=== PATIENT | male | born 1945 | race Asian ===

== ENCOUNTER 2017-05-28 06:05 | Inpatient (IN) | payer MEDICARE, OTHER ==
[~2017-05-28] VITALS: Ht 162.6 cm; Wt 70.4 kg
[~2017-05-28 06:05] MED LIST: ASPI-496 PO; ATOR20TA9 PO; CARV-39 PO; LISI-167 PO; MAGN420T PO; METF500T4 PO; NITR0.4T SL; OMEP-110 PO; SERT25TA3 PO; TICA90TA PO; VITA1TAB63 PO
[2017-05-28] MEDS ORDERED: SODIUM CHLORIDE 0.9% 1,000 ML IV ONE ×2 (06:17→10:06)
[2017-05-28] MEDS ORDERED: MORPHINE SULFATE 4 MG/ML, 1ML IVPush PRN (06:30)
[2017-05-28] MEDS ORDERED: ONDANSETRON 2MG/ML, 2ML IVPush ONE (06:30)
[2017-05-28] MEDS ORDERED: SODIUM CHLORIDE FLUSH 10ML SYR IVF ONE (06:30)
[2017-05-28 06:51] LABS: HEMATOCRIT 42.1 % (39.2-51.8); HEMOGLOBIN 13.9 g/dL (13.7-18.0); WHITE BLOOD COUNT 14.2 x10^3/uL (3.4-10)
[2017-05-28 07:04] LABS: ASPARTATE AMINO TRANSFERASE 36 U/L (15-37); BLOOD UREA NITROGEN 24 mg/dL (7-18)
[2017-05-28] MEDS ORDERED: OMNIPAQUE 350 MG/ML, 100ML BOTTLE ONE (08:00)
[2017-05-28] MEDS ORDERED: METRONIDAZOLE PMX 500MG/100ML 100 ML ONE (08:44)
[2017-05-28] MEDS ORDERED: CEFOTETAN PMX 1GM/50ML 50 ML IV ONE (09:00)
[2017-05-28] MEDS ORDERED: METRONIDAZOLE PMX 500MG/100ML 100 ML IV ONE (09:00)
[2017-05-28] MEDS ORDERED: CEFAZOLIN PMX 1GM/50ML 50 ML ONE (10:04)
[2017-05-28] MEDS: D5%-0.45% NACL 1,000 ML IV SCH ×2 (10:12→17:00)
[2017-05-28] MEDS ORDERED: PIPERACILLIN/TAZO/PMX 3.375GM 50 ML ONE (10:19)
[2017-05-28] MEDS: PIPERACILLIN/TAZO/PMX 3.375GM 50 ML IV SCH ×3 (10:21→23:16)
[2017-05-28] MEDS ORDERED: ONDANSETRON ODT 4 MG PO PRN (10:30)
[2017-05-28] MEDS ORDERED: ONDANSETRON 2MG/ML, 2ML IVPush PRN ×2 (10:30→19:00)
[2017-05-28] MEDS ORDERED: LABETALOL 5MG/ML, 20ML IVPush PRN (10:30)
[2017-05-28] MEDS ORDERED: GUAIFENESIN/DM 200-20MG, 10ML UDC PO PRN (10:30)
[2017-05-28] MEDS ORDERED: SODIUM CHLORIDE FLUSH 10ML SYR IVF PRN (10:30)
[2017-05-28] MEDS ORDERED: morphine SULFATE 10 MG/ML, 1ML IVPush PRN (10:30)
[2017-05-28] MEDS ORDERED: NITROGLYCERIN 0.4 MG BOTTLE (25 TABS) SL PRN (11:00)
[2017-05-28 11:49] VITALS: BP 125/65
[2017-05-28 12:18] VITALS: BP 125/65
[2017-05-28] MEDS ORDERED: EPINEPHRINE 1 MG/ML, 1ML ONE (18:11)
[2017-05-28] MEDS ORDERED: BUPIVACAINE/PF 0.5% ONE (18:11)
[2017-05-28] MEDS ORDERED: FENTANYL PF 250 MCG/5ML ONE (18:13)
[2017-05-28] MEDS ORDERED: LIDOCAINE GEL 2%, 5ML ONE (18:14)
[2017-05-28] MEDS ORDERED: ONDANSETRON 2MG/ML, 2ML ONE (18:17)
[2017-05-28] MEDS ORDERED: NEOSTIGMINE 1 MG/ML, 10ML ONE (18:17)
[2017-05-28] MEDS ORDERED: GLYCOPYRROLATE 0.2MG/1ML, 5ML ONE (18:17)
[2017-05-28] MEDS ORDERED: PROPOFOL 10 MG/ML, 20ML ONE (18:17)
[2017-05-28] MEDS ORDERED: SUCCINYLCHOLINE 20 MG/ML, 10ML ONE (18:17)
[2017-05-28] MEDS ORDERED: DEXAMETHASONE 4 MG/ML, 1ML ONE (18:17)
[2017-05-28] MEDS ORDERED: CEFAZOLIN 1,000 MG ONE (18:17)
[2017-05-28] MEDS ORDERED: ROCURONIUM 10 MG/ML,10ML ONE (18:17)
[2017-05-28] MEDS ORDERED: PHENYLEPHRINE 10 MG/ML ONE (18:21)
[2017-05-28] MEDS ORDERED: BUPIVACAINE/PF-EPI 0.5% 1:200K INFIL ONE (18:52)
[2017-05-28] MEDS ORDERED: MIDAZOLAM 1 MG/ML, 2ML IV PRN (19:00)
[2017-05-28] MEDS ORDERED: ALBUTEROL/IPRATROPIUM 2.5MG/0.5MG, 3 ML NPPB PRN (19:00)
[2017-05-28] MEDS ORDERED: LABETALOL 5MG/ML, 20ML IV PRN (19:00)
[2017-05-28] MEDS ORDERED: OXYcodone 5 MG/5 ML ORAL.SOL UDC PO PRN (19:00)
[2017-05-28] MEDS ORDERED: hydrALAzine 20 MG/ML, 1ML IV PRN (19:00)
[2017-05-28] MEDS ORDERED: HYDROmorphone 1 MG/ML, 1ML IV PRN (19:00)
[2017-05-28] MEDS ORDERED: FENTANYL PF 100 MCG/2ML IV PRN (19:00)
[2017-05-28] MEDS: CARVEDILOL 12.5 MG TABLET PO SCH (21:00)
[2017-05-28 21:04] VITALS: BP 125/65
[2017-05-28] MEDS ORDERED: MORPHINE SULFATE 4 MG/ML, 1ML IV PRN (22:00)
[2017-05-28] MEDS: ATORVASTATIN 40 MG TABLET PO SCH (23:16)
[2017-05-29 00:23] VITALS: BP 111/61
[2017-05-29] MEDS: PIPERACILLIN/TAZO/PMX 3.375GM 50 ML IV SCH ×4 (04:47→22:05)
[2017-05-29 04:58] VITALS: BP 114/55
[2017-05-29 05:36] LABS: HEMATOCRIT 36.6 % (39.2-51.8); HEMOGLOBIN 12.2 g/dL (13.7-18.0); WHITE BLOOD COUNT 9.9 x10^3/uL (3.4-10)
[2017-05-29 05:50] LABS: ASPARTATE AMINO TRANSFERASE 23 U/L (15-37); BLOOD UREA NITROGEN 18 mg/dL (7-18)
[2017-05-29 06:11] LABS: DIFF TOTAL CELLS COUNTED 100 CELL DIFF
[2017-05-29 06:14] LABS: VERIFY COUNTS? YES
[2017-05-29 06:15] LABS: ANISOCYTOSIS 1+; POLYCHROMASIA 1+
[2017-05-29 06:16] LABS: OVALOCYTES 1+
[2017-05-29 06:17] LABS: LARGE PLATELETS 1+
[2017-05-29 07:29] VITALS: BP 93/56
[2017-05-29] MEDS: TICAGRELOR 90 MG TABLET PO SCH ×2 (08:53→20:53)
[2017-05-29] MEDS: CARVEDILOL 12.5 MG TABLET PO SCH (09:00)
[2017-05-29] MEDS: LISINOPRIL 5 MG TABLET PO SCH (09:00)
[2017-05-29] MEDS: SERTRALINE 50MG TABLET PO SCH (09:17)
[2017-05-29] MEDS: HYDROcodone/APAP 5/325 TABLET PO PRN ×2 (09:17→20:53)
[2017-05-29] MEDS: ASPIRIN 81 MG TABLET EC PO SCH (09:17)
[2017-05-29] MEDS: ENOXAPARIN 40 MG/0.4 ML SQ SCH (09:17)
[2017-05-29] MEDS: CARVEDILOL 3.125 MG TABLET PO SCH ×2 (10:12→20:53)
[2017-05-29] MEDS: D5%-0.45% NACL 1,000 ML IV SCH (10:12)
[2017-05-29 13:10] VITALS: BP 95/47
[2017-05-29] MEDS ORDERED: ACETAMINOPHEN 325 MG TABLET PO PRN (15:30)
[2017-05-29 19:34] VITALS: BP 101/58
[2017-05-29] MEDS: ATORVASTATIN 40 MG TABLET PO SCH (20:53)
[2017-05-29] MEDS ORDERED: CARVEDILOL 3.125 MG TABLET PO SCH (21:00)
[2017-05-30 01:15] VITALS: BP 100/61
[2017-05-30 01:26] VITALS: BP 106/71
[2017-05-30] MEDS: PIPERACILLIN/TAZO/PMX 3.375GM 50 ML IV SCH ×3 (04:32→16:28)
[2017-05-30 05:38] LABS: HEMATOCRIT 34.4 % (39.2-51.8); HEMOGLOBIN 11.3 g/dL (13.7-18.0); WHITE BLOOD COUNT 10.8 x10^3/uL (3.4-10)
[2017-05-30 05:43] LABS: BLOOD UREA NITROGEN 19 mg/dL (7-18)
[2017-05-30 05:46] LABS: ASPARTATE AMINO TRANSFERASE 19 U/L (15-37)
[2017-05-30 08:00] VITALS: BP 119/68
[2017-05-30] MEDS: TICAGRELOR 90 MG TABLET PO SCH ×2 (09:00→21:00)
[2017-05-30] MEDS: SERTRALINE 50MG TABLET PO SCH (09:05)
[2017-05-30] MEDS: ASPIRIN 81 MG TABLET EC PO SCH (09:05)
[2017-05-30] MEDS: CARVEDILOL 3.125 MG TABLET PO SCH ×2 (09:06→22:06)
[2017-05-30] MEDS: LISINOPRIL 5 MG TABLET PO SCH (09:06)
[2017-05-30] MEDS: ENOXAPARIN 40 MG/0.4 ML SQ SCH (09:06)
[2017-05-30] MEDS ORDERED: D5%-0.45% NACL 1,000 ML IV SCH (10:12)
[2017-05-30] MEDS: HYDROcodone/APAP 5/325 TABLET PO PRN (10:35)
[2017-05-30 14:00] VITALS: BP 134/65
[2017-05-30] MEDS: METRONIDAZOLE PMX 500MG/100ML 100 ML IV SCH (18:20)
[2017-05-30 19:59] VITALS: BP 101/60
[2017-05-30] MEDS: CEFTRIAXONE PMX 1GM/50ML 50 ML IV SCH (22:05)
[2017-05-30] MEDS: ATORVASTATIN 40 MG TABLET PO SCH (22:05)
[2017-05-31 00:53] VITALS: BP 104/62
[2017-05-31] MEDS: METRONIDAZOLE PMX 500MG/100ML 100 ML IV SCH ×3 (01:53→18:02)
[2017-05-31] MEDS: HYDROcodone/APAP 5/325 TABLET PO PRN ×2 (01:57→17:20)
[2017-05-31 05:49] LABS: HEMATOCRIT 31.3 % (39.2-51.8); HEMOGLOBIN 10.5 g/dL (13.7-18.0); WHITE BLOOD COUNT 11.4 x10^3/uL (3.4-10)
[2017-05-31 05:50] LABS: BLOOD UREA NITROGEN 16 mg/dL (7-18)
[2017-05-31 06:41] VITALS: BP 102/61
[2017-05-31] MEDS: SERTRALINE 50MG TABLET PO SCH (09:12)
[2017-05-31] MEDS: ASPIRIN 81 MG TABLET EC PO SCH (09:17)
[2017-05-31] MEDS: CARVEDILOL 3.125 MG TABLET PO SCH ×2 (09:17→21:45)
[2017-05-31] MEDS: ENOXAPARIN 40 MG/0.4 ML SQ SCH (09:18)
[2017-05-31] MEDS: LISINOPRIL 5 MG TABLET PO SCH (09:18)
[2017-05-31] MEDS: TICAGRELOR 90 MG TABLET PO SCH ×2 (09:18→21:45)
[2017-05-31 13:01] VITALS: BP 125/65
[2017-05-31 20:00] VITALS: BP 120/61
[2017-05-31] MEDS: CEFTRIAXONE PMX 1GM/50ML 50 ML IV SCH (21:45)
[2017-05-31] MEDS: ATORVASTATIN 40 MG TABLET PO SCH (21:45)
[2017-05-31] MEDS ORDERED: DIPHENHYDRAMINE 25 MG CAPSULE PO PRN (22:00)
[2017-05-31] MEDS ORDERED: DIPHENHYDRAMINE 25 MG CAPSULE ONE (22:01)
[2017-06-01] MEDS: HYDROcodone/APAP 5/325 TABLET PO PRN ×2 (01:16→10:02)
[2017-06-01] MEDS: METRONIDAZOLE PMX 500MG/100ML 100 ML IV SCH ×2 (01:17→11:38)
[2017-06-01 01:22] VITALS: BP 129/50
[2017-06-01 04:11] LABS: HEMATOCRIT 30.1 % (39.2-51.8); HEMOGLOBIN 10.1 g/dL (13.7-18.0); WHITE BLOOD COUNT 11.3 x10^3/uL (3.4-10)
[2017-06-01 04:31] LABS: ASPARTATE AMINO TRANSFERASE 40 U/L (15-37); BLOOD UREA NITROGEN 19 mg/dL (7-18)
[2017-06-01] MEDS ORDERED: POTASSIUM CHLORIDE 20 MEQ TAB.ER.PRT PO ONE (07:30)
[2017-06-01 07:43] VITALS: BP 111/70
[2017-06-01] MEDS: SERTRALINE 50MG TABLET PO SCH (10:01)
[2017-06-01] MEDS: ENOXAPARIN 40 MG/0.4 ML SQ SCH (10:01)
[2017-06-01] MEDS: CARVEDILOL 3.125 MG TABLET PO SCH (10:01)
[2017-06-01] MEDS: LISINOPRIL 5 MG TABLET PO SCH (10:01)
[2017-06-01] MEDS: ASPIRIN 81 MG TABLET EC PO SCH (10:01)
[2017-06-01] MEDS: TICAGRELOR 90 MG TABLET PO SCH (10:01)
[2017-06-01] MEDS ORDERED: CEFD300C37 PO (13:13)
[2017-06-01 13:30] VITALS: BP_SYST 111; BP_SYST 120; BP_DIAS 70; BP_DIAS 72
== END 2017-06-01 16:53 | disposition home or self-care (01) | DRG 338 ==
LOC: ED 08:39 → EDIP 10:06 → 4NOR 10:46
PROVIDERS: ADMIT Hospitalist; ATTEND Hospitalist
PROC: 0DTJ4ZZ Resection of Appendix, Percutaneous Endoscopic Approach (ICD-10-PCS; principal; 2017-05-28 16:30)
DX: K35.3 Acute appendicitis with localized peritonitis (principal); I50.23 Acute on chronic systolic (congestive) heart failure; N17.9 Acute kidney failure, unspecified; I69.354 Hemiplegia and hemiparesis following cerebral infarction affecting left non-dominant side; K66.8 Other specified disorders of peritoneum; N30.90 Cystitis, unspecified without hematuria; I25.5 Ischemic cardiomyopathy; I25.10 Atherosclerotic heart disease of native coronary artery without angina pectoris; I11.0 Hypertensive heart disease with heart failure; D64.9 Anemia, unspecified; E11.9 Type 2 diabetes mellitus without complications; F32.9 Major depressive disorder, single episode, unspecified; E78.5 Hyperlipidemia, unspecified; J44.9 Chronic obstructive pulmonary disease, unspecified; K21.9 Gastro-esophageal reflux disease without esophagitis; Z82.49 Family history of ischemic heart disease and other diseases of the circulatory system; Z87.891 Personal history of nicotine dependence; I25.2 Old myocardial infarction; Z95.5 Presence of coronary angioplasty implant and graft; Z95.810 Presence of automatic (implantable) cardiac defibrillator; Z79.899 Other long term (current) drug therapy; Z79.82 Long term (current) use of aspirin
CPT/HCPCS: 36415; 71010; 74177; 76700; 80048; 80053; 81001; 82010; 82040; 82140; 82962; 83605; 83690; 83735; 83880; 84439; 85025; 85610; 85730; 87040; 87077; 87086; 87186; 87324; 88304; 93005; 96361; 96365; 96366; J0171; J0690; J0696; J1100; J1650; J2405; J2543; J2704; J2710; J3010; J3490; Q9967; J0330; J2370; J7030; Q0163